=== PATIENT | female | born 1945 | race Caucasian/White ===

== ENCOUNTER → 2016-09-06 | Outpatient (CLI) | payer MEDICARE, BC ==
[~2016-09-06] MED LIST: ALDACTONE25 MG PO; ASPIRIN325 MG PO; CARBOPLATI10 MG/1 ML IV; COREG12.5 MG PO; CRANBERRY200 MG PO; DITROPAN XL10 MG PO; LIPITOR20 M1 PO; MEGACE40 MG PO; NOLVADEX10 MG PO; NORCO 5-325 MG1 TAB PO; PACLITAXEL6 MG/1 ML IV; PEPCID AC20 MG PO; STOOL SOFTENER100 MG PO; TAMOXIFEN CITRA20 MG PO; THERA-VITE W/ B1 TAB PO; TYLENOL EXTRA500 MG PO
== END | disposition disaster alternative care site (69) ==
LOC: GKIC 11:32
DX: C54.8 Malignant neoplasm of overlapping sites of corpus uteri (principal); C79.2 Secondary malignant neoplasm of skin; D70.1 Agranulocytosis secondary to cancer chemotherapy; D64.81 Anemia due to antineoplastic chemotherapy; G62.2 Polyneuropathy due to other toxic agents
CPT/HCPCS: A9552

== ENCOUNTER → 2016-09-26 | Day surgery (SDC) | payer MEDICARE, BC ==
[~2016-09-26] VITALS: Ht 157.5 cm; Wt 67.7 kg
--- NOTE | ~2016-09-26 | OR ---
PATIENT'S NAME: NEREYDA [facility] AGE: 71 Y [address] ROOM: [place] [address] LOCATION: [facility] [place] ADMIT DATE: 09/26/2016 OR/Procedure Report DISCHARGE DATE: FAMILY PHYSICIAN: cJ Dowling MD ATTENDING PHYSICIAN: SIMEON LEMONS SURGEON: Simeon Lemons MD DOOR TO DOOR FUNDRAISING COLLECTOR: None. DATE OF PROCEDURE: 09/26/2016 PREOPERATIVE DIAGNOSES: 1. Chronic bilateral hydronephrosis. 2. Indwelling bilateral ureteral stents. 3. Renal insufficiency. 4. Distal bilateral ureteral obstruction. 5. History of recurrent endometrial adenocarcinoma with pelvic mass. POSTOPERATIVE DIAGNOSES: 1. Chronic bilateral hydronephrosis. 2. Indwelling bilateral ureteral stents. 3. Renal insufficiency. 4. Distal bilateral ureteral obstruction. 5. History of recurrent endometrial adenocarcinoma with pelvic mass. INDICATIONS FOR PROCEDURE: The patient is a pleasant 71-year-old female with history of recurrent endometrial adenocarcinoma with a 10 cm pelvic mass and associated bilateral hydronephrosis. The patient has been undergoing bilateral ureteral stent exchanges. The patient most recently underwent a cystoscopy with bilateral ureteral stent exchange and dilation of bilateral ureteral strictures on July 02, 2016. The patient was explained the risks, benefits, indications, and alternatives to the above procedure and wished to proceed and consented freely. OPERATIVE PROCEDURE: 1. Cystoscopy with bilateral ureteral stent exchange 2. Cystoscopy with bilateral retrograde ureteropyelograms 3. Diagnostic left ureteroscopy 4. Balloon dilatation of bilateral ureteral sticture ANESTHESIA: General. DESCRIPTION OF OPERATION: The patient was brought back to the operating room, where she was placed on the OR table in the supine position. A surgical time- out was called where patient identification, surgical site, and procedure was then verified. We also did verify that the patient received an IV Levaquin antibiotic within an hour of beginning the procedure. The patient then underwent successful administration of general anesthesia. The patient was then moved and placed in a low lithotomy position where her genital area was then prepped and draped in the usual sterile fashion. I began by advancing a rigid cystoscope into the patient's urinary bladder. The patient's urethra was within normal limits. A full pancystoscopy was performed and her bladder was negative for any bladder tumors, cellules, or diverticula. I did PATIENT'S NAME: NEREYDA [facility] AGE: 71 Y [address] ROOM: [place], [place] [address] LOCATION: [facility] [place] ADMIT DATE: 09/26/2016 OR/Procedure Report DISCHARGE DATE: FAMILY PHYSICIAN: Jc Dowling MD ATTENDING PHYSICIAN: SIMEON LEMONS visualize the distal curl of the indwelling bilateral ureteral stents. I began by using the stent graspers to grab the distal curl of the indwelling right ureteral stent which was brought out through her urethral meatus. I then advanced a Sensor Guidewire through the stent and up to the patient's right renal collecting system and removed the stent leaving the wire in place. I then performed a right retrograde ureteral pyelogram. My interpretation was that she had some mild fullness of her renal pelvis and tortuosity of the proximal ureter. There did also appear to be some recurrent ureteral obstruction distally at the level of her right iliac artery. I then advanced a second wire, then over the wire, I advanced an 18-Scottish balloon dilator and dilated the area of stricture. I then removed the balloon dilator and then over the remaining wire, advanced a 7-Scottish x 30 cm ureteral stent, deploying it, noting a good curl fluoroscopically in the right renal pelvis as well as a good curl visually in the patient's bladder. I then turned my attention to her left side where I used the stent graspers to grab the distal curl of the indwelling left ureteral stent and brought this out through her urethral meatus. I then advanced a guidewire through the stent and up to the patient's proximal right ureter. I was having some difficulty getting the wire back up into her renal pelvis, given some tortuosity of her proximal left ureter. Then, alongside the wire, I used a semi-rigid ureteroscope to perform a diagnostic ureteroscopy, carefully advancing the ureteroscope into her distal left ureter. Given the stricture at the level of her left iliacs, I was unable to advance the ureteroscope up into her mid to proximal ureter. Using the ureteroscope, however, I was able to successfully pass a wire through the ureteroscope and then finally get a wire back up into her left renal pelvis. Of note, I had also performed a left retrograde ureteropyelogram. My interpretation is that she had some [id number] fullness of her left renal pelvis as well as some tortuosity of her left proximal ureter. She did have some recurrent stricture noted at her distal ureter at the level of her iliacs. Then, over the second wire, after removing the ureteroscope, I had advanced a balloon dilator, which was 18-Scottish in caliber, and performed a balloon dilation of the area of distal left ureteral stricture. Then, over the remaining wire, I advanced a 7-Scottish x 30 cm ureteral stent, deploying it, noting a good curl fluoroscopically in the patient's left renal pelvis as well as a good curl visually in the patient's bladder. I then emptied the patient's bladder. The patient did tolerate the procedure well. The patient was then taken out of the lithotomy position where she was then awakened from general anesthesia, extubated, and transferred to the recovery bed and transported to the recovery room in good condition. COMPLICATIONS: None. DRAINS: Bilateral indwelling 7-Scottish x 30 cm indwelling ureteral stents. ESTIMATED BLOOD LOSS: Minimal. PATIENT'S NAME: NEREYDA [facility]KET[facility] AGE: 71 Y [address] ROOM: [place] [address] LOCATION: [facility] [place] ADMIT DATE: 09/26/2016 OR/Procedure Report DISCHARGE DATE: FAMILY PHYSICIAN: Jc Dowling MD ATTENDING PHYSICIAN: SIMEON LEMONS SPECIMENS: None. FOLLOWUP PLAN: We will plan to have the patient back for stent exchange again in 3 months from now. SIMEON LEMONS MD GP/modl /[id number] CC: MD Jc Alvarez MD d: 09/26/16 1251 t: 09/28/16 1032, OPERATIVE SUMMARY
== END | disposition disaster alternative care site (69) ==
LOC: GPOC 07-26 14:00 → GSDC 08-02 06:30 → GPOC 09-19 15:00 → GSDC 05:56 → GPOC 09-30 09:00
PROC: 0T788DZ Dilation of Bilateral Ureters with Intraluminal Device, Via Natural or Artificial Opening Endoscopic (ICD-10-PCS; principal; 2016-09-26)
PROC: BT14ZZZ Fluoroscopy of Kidneys, Ureters and Bladder (ICD-10-PCS; 2016-09-26)
PROC: 0TP98DZ Removal of Intraluminal Device from Ureter, Via Natural or Artificial Opening Endoscopic (ICD-10-PCS; 2016-09-26)
DX: N13.1 Hydronephrosis with ureteral stricture, not elsewhere classified (principal); K21.9 Gastro-esophageal reflux disease without esophagitis; I12.9 Hypertensive chronic kidney disease with stage 1 through stage 4 chronic kidney disease, or unspecified chronic kidney disease; N18.3 Chronic kidney disease, stage 3 (moderate); E78.00 Pure hypercholesterolemia, unspecified; Z85.42 Personal history of malignant neoplasm of other parts of uterus; Z90.710 Acquired absence of both cervix and uterus; Z98.41 Cataract extraction status, right eye; Z98.42 Cataract extraction status, left eye; Z98.890 Other specified postprocedural states; Z79.82 Long term (current) use of aspirin; Z79.899 Other long term (current) drug therapy; Z79.891 Long term (current) use of opiate analgesic; Z88.2 Allergy status to sulfonamides
CPT/HCPCS: C1725; C1769; C2617; J1100; J1956; J2001; J2405; J7030